=== PATIENT | female | born 1950 | race Caucasian/White ===

== ENCOUNTER 2021-06-03 12:04 | Inpatient (IN) | payer OTHER ==
[~2021-06-03] VITALS: Ht 162.6 cm; Wt 114.0 kg
[~2021-06-03 12:04] MED LIST: BROMFED DM COU473 ML PO; DIFLUCAN200 MG PO
[2021-06-03 13:18] LABS: HEMOGLOBIN 15.4 gm/dl (12.3-15.3); RED BLOOD COUNT 4.93 M/UL (4.00-5.10); WHITE BLOOD COUNT 9.4 K/UL (4.5-11.0)
[2021-06-03 13:52] LABS: BUN/CREATININE RATIO 15 (0-10)
[2021-06-03] MEDS ORDERED: OMNIPOD1 EACH SQ (15:31)
[2021-06-03] MEDS ORDERED: TRESIBA FL100 UNIT/1 SC (15:35)
[2021-06-03] MEDS ORDERED: ALLEGRA ALLERG180 MG PO (15:36)
[2021-06-03] MEDS ORDERED: EFFEXOR XR75 MG PO (15:37)
[2021-06-03] MEDS ORDERED: NOVOLOG 10100 UNITS/ INJ (15:38)
[2021-06-03] MEDS ORDERED: COZAAR50 MG PO (15:39)
[2021-06-03] MEDS ORDERED: FARXIGA10 MG PO (15:39)
[2021-06-03] MEDS ORDERED: OZEMPIC1 MG/0.71 SC (15:39)
[2021-06-03] MEDS ORDERED: VITAMIN D21250 MCG PO (15:40)
[2021-06-03] MEDS ORDERED: LIPITOR TAB 2020 MG PO (15:44)
[2021-06-03] MEDS ORDERED: LEVOTHYROXINE75 MC1 PO (15:45)
[2021-06-03] MEDS ORDERED: PROAIR HFA8.5 GM INH (16:32)
[2021-06-03] MEDS ORDERED: SYMBICORT 160-1 INHA INH (16:32)
[2021-06-04 05:54] LABS: HEMOGLOBIN 14.4 gm/dl (12.3-15.3); RED BLOOD COUNT 4.62 M/UL (4.00-5.10)
[2021-06-04 05:57] LABS: WHITE BLOOD COUNT 6.7 K/UL (4.5-11.0)
--- NOTE | 2021-06-04 07:02 | NUR ---
3146 - [id number]: PATIENT SITTING UP ON SIDE OF BED, SPOE NOTED AT 88 - 84%. INCREASED O2 TO 4 LPM AND THEN ON TO 5 LPM. RN NOTIFIFED RESPIRATORY REQUESTING HIGH-FLOW N/C. ABG OBTAINED PER PREVIOUS ORDER AND PLACED ON 6LPM HIGH-FLOW. SPOE NOW NOTED AT 89%. WILL UPDATE PHYSICIAN MILE ABG RESULTS ARE AVAILABLE.
--- NOTE | 2021-06-04 14:43 | NUR ---
1440: [facility]".
[2021-06-05 05:26] LABS: HEMOGLOBIN 14.2 gm/dl (12.3-15.3); RED BLOOD COUNT 4.54 M/UL (4.00-5.10)
[2021-06-06 03:13] LABS: HEMOGLOBIN 13.5 gm/dl (12.3-15.3); RED BLOOD COUNT 4.58 M/UL (4.00-5.10); WHITE BLOOD COUNT 12.5 K/UL (4.5-11.0)
[2021-06-07 06:13] LABS: HEMOGLOBIN 14.1 gm/dl (12.3-15.3); RED BLOOD COUNT 4.55 M/UL (4.00-5.10); WHITE BLOOD COUNT 15.1 K/UL (4.5-11.0)
[2021-06-08 05:26] LABS: HEMOGLOBIN 13.9 gm/dl (12.3-15.3); RED BLOOD COUNT 4.49 M/UL (4.00-5.10); WHITE BLOOD COUNT 18.2 K/UL (4.5-11.0)
[2021-06-08 05:47] LABS: BUN/CREATININE RATIO 42 (0-10)
[2021-06-09 05:23] LABS: HEMOGLOBIN 14.2 gm/dl (12.3-15.3); RED BLOOD COUNT 4.61 M/UL (4.00-5.10); WHITE BLOOD COUNT 17.7 K/UL (4.5-11.0)
[2021-06-09 07:17] LABS: BUN/CREATININE RATIO 49 (0-10)
[2021-06-10 05:07] LABS: HEMOGLOBIN 14.4 gm/dl (12.3-15.3); RED BLOOD COUNT 4.68 M/UL (4.00-5.10); WHITE BLOOD COUNT 16.3 K/UL (4.5-11.0)
[2021-06-10 05:29] LABS: BUN/CREATININE RATIO 54 (0-10)
[2021-06-11 05:11] LABS: RED BLOOD COUNT 4.8 M/UL (4.00-5.10)
[2021-06-11 05:32] LABS: BUN/CREATININE RATIO 60 (0-10)
[2021-06-12 09:38] LABS: HEMOGLOBIN 15.8 gm/dl (12.3-15.3); RED BLOOD COUNT 5.07 M/UL (4.00-5.10); WHITE BLOOD COUNT 18.8 K/UL (4.5-11.0)
[2021-06-12 09:58] LABS: BUN/CREATININE RATIO 55 (0-10)
[2021-06-13 08:38] LABS: HEMOGLOBIN 17.4 gm/dl (12.3-15.3); RED BLOOD COUNT 5.53 M/UL (4.00-5.10); WHITE BLOOD COUNT 23.2 K/UL (4.5-11.0)
[2021-06-13 09:01] LABS: BUN/CREATININE RATIO 48 (0-10)
[2021-06-14 09:18] LABS: HEMOGLOBIN 17.6 gm/dl (12.3-15.3); RED BLOOD COUNT 5.6 M/UL (4.00-5.10)
[2021-06-14 10:03] LABS: BUN/CREATININE RATIO 51 (0-10)
[2021-06-15 08:15] LABS: HEMOGLOBIN 15.7 gm/dl (12.3-15.3); RED BLOOD COUNT 5.25 M/UL (4.00-5.10)
[2021-06-15 08:40] LABS: WHITE BLOOD COUNT 68.9 K/UL (4.5-11.0)
[2021-06-15 10:11] LABS: HEMOGLOBIN 15.2 gm/dl (12.3-15.3); RED BLOOD COUNT 5.08 M/UL (4.00-5.10)
[2021-06-15 10:12] LABS: WHITE BLOOD COUNT 65.2 K/UL (4.5-11.0)
[2021-06-16 05:36] LABS: HEMOGLOBIN 14.3 gm/dl (12.3-15.3); RED BLOOD COUNT 4.71 M/UL (4.00-5.10)
[2021-06-16 05:42] LABS: WHITE BLOOD COUNT 42.9 K/UL (4.5-11.0)
[2021-06-17 05:26] LABS: RED BLOOD COUNT 4.16 M/UL (4.00-5.10); WHITE BLOOD COUNT 28.6 K/UL (4.5-11.0)
[2021-06-18 16:09] LABS: HEPARIN INDUCED PLATELET AB 0.091 OD (0.000-0.400)
[2021-06-19 05:52] LABS: WHITE BLOOD COUNT 26.7 K/UL (4.5-11.0)
[2021-06-19 05:54] LABS: RED BLOOD COUNT 3.72 M/UL (4.00-5.10)
--- NOTE | 2021-06-19 09:15 | NUR ---
PT CONSISTENTLY BRADYCARDIC AT THIS TIME. TITRATING PROPOFOL PER PROTOCOL. MD NOTIFIED. ORDER OBTAINED FOR ATROPINE AT BEDSIDE. SEE EMAR. WILL CONTINUE TO MONITOR CLOSELY.
--- NOTE | 2021-06-19 11:37 | NUR ---
1000 PT ETCO2 18 ON MONITOR. NOTIFIED. ORDER FOR ABG OBTAINED.
[2021-06-20 05:24] LABS: HEMOGLOBIN 10.1 gm/dl (12.3-15.3); RED BLOOD COUNT 3.47 M/UL (4.00-5.10); WHITE BLOOD COUNT 21.6 K/UL (4.5-11.0)
[2021-06-21 05:25] LABS: RED BLOOD COUNT 3.56 M/UL (4.00-5.10)
[2021-06-21 05:55] LABS: WHITE BLOOD COUNT 28.4 K/UL (4.5-11.0)
[2021-06-22 04:39] LABS: HEMOGLOBIN 9.2 gm/dl (12.3-15.3)
[2021-06-22 04:49] LABS: RED BLOOD COUNT 3.16 M/UL (4.00-5.10); WHITE BLOOD COUNT 17.8 K/UL (4.5-11.0)
[2021-06-23 04:25] LABS: HEMOGLOBIN 10.4 gm/dl (12.3-15.3); RED BLOOD COUNT 3.36 M/UL (4.00-5.10)
[2021-06-23 04:30] LABS: WHITE BLOOD COUNT 23.8 K/UL (4.5-11.0)
[2021-06-25 04:31] LABS: HEMOGLOBIN 9.9 gm/dl (12.3-15.3); RED BLOOD COUNT 3.2 M/UL (4.00-5.10)
[2021-06-25 05:11] LABS: WHITE BLOOD COUNT 17.2 K/UL (4.5-11.0)
[2021-06-26 05:24] LABS: HEMOGLOBIN 9.7 gm/dl (12.3-15.3); RED BLOOD COUNT 3.19 M/UL (4.00-5.10); WHITE BLOOD COUNT 15.1 K/UL (4.5-11.0)
[2021-06-27 06:02] LABS: HEMOGLOBIN 8.8 gm/dl (12.3-15.3); WHITE BLOOD COUNT 13.1 K/UL (4.5-11.0)
[2021-06-27 06:15] LABS: RED BLOOD COUNT 2.86 M/UL (4.00-5.10)
[2021-06-28 04:08] LABS: HEMOGLOBIN 8.8 gm/dl (12.3-15.3); RED BLOOD COUNT 2.9 M/UL (4.00-5.10)
[2021-06-28 04:12] LABS: WHITE BLOOD COUNT 9.7 K/UL (4.5-11.0)
== END 2021-06-29 12:30 | disposition expired | DRG 207 ==
LOC: ER1 12:04 → M/S 15:13 → CCU 15:13 → ER1 16:08 → PROG CARE 06-05 16:13 → CCU 06-06 13:22
PROVIDERS: Internal Medicine; Internal Medicine Pulmonary Disease; ADMIT Internal Medicine
PROC: 5A1955Z Respiratory Ventilation, Greater than 96 Consecutive Hours (ICD-10-PCS; 2021-06-03)
PROC: B24BZZ4 Ultrasonography of Heart with Aorta, Transesophageal (ICD-10-PCS; 2021-06-03)
PROC: 0BH17EZ Insertion of Endotracheal Airway into Trachea, Via Natural or Artificial Opening (ICD-10-PCS; 2021-06-03)
PROC: XW033E5 Introduction of Remdesivir Anti-infective into Peripheral Vein, Percutaneous Approach, New Technology Group 5 (ICD-10-PCS; 2021-06-03)
PROC: 3E0333Z Introduction of Anti-inflammatory into Peripheral Vein, Percutaneous Approach (ICD-10-PCS; 2021-06-03)
PROC: XW033H5 Introduction of Tocilizumab into Peripheral Vein, Percutaneous Approach, New Technology Group 5 (ICD-10-PCS; 2021-06-03)
PROC: 8E0ZXY6 Isolation (ICD-10-PCS; 2021-06-03)
PROC: XW13325 Transfusion of Convalescent Plasma (Nonautologous) into Peripheral Vein, Percutaneous Approach, New Technology Group 5 (ICD-10-PCS; principal; 2021-06-04)
PROC: 5A0945A Assistance with Respiratory Ventilation, 24-96 Consecutive Hours, High Flow/Velocity Cannula (ICD-10-PCS; 2021-06-05)
PROC: 5A09357 Assistance with Respiratory Ventilation, Less than 24 Consecutive Hours, Continuous Positive Airway Pressure (ICD-10-PCS; 2021-06-06)
PROC: 02HV33Z Insertion of Infusion Device into Superior Vena Cava, Percutaneous Approach (ICD-10-PCS; 2021-06-14)
PROC: B548ZZA Ultrasonography of Superior Vena Cava, Guidance (ICD-10-PCS; 2021-06-14)
PROC: 0W9B30Z Drainage of Left Pleural Cavity with Drainage Device, Percutaneous Approach (ICD-10-PCS; 2021-06-16)
DX: U07.1 COVID-19 (principal); J12.82 Pneumonia due to coronavirus disease 2019; J80 Acute respiratory distress syndrome; G93.41 Metabolic encephalopathy; Z51.5 Encounter for palliative care; J15.1 Pneumonia due to Pseudomonas; A41.89 Other specified sepsis; R65.21 Severe sepsis with septic shock; Z68.41 Body mass index [BMI] 40.0-44.9, adult; N17.9 Acute kidney failure, unspecified; E87.0 Hyperosmolality and hypernatremia; J98.11 Atelectasis; E87.4 Mixed disorder of acid-base balance; I95.9 Hypotension, unspecified; D69.6 Thrombocytopenia, unspecified; I08.2 Rheumatic disorders of both aortic and tricuspid valves; I27.20 Pulmonary hypertension, unspecified; Z96.41 Presence of insulin pump (external) (internal); E11.649 Type 2 diabetes mellitus with hypoglycemia without coma; E78.00 Pure hypercholesterolemia, unspecified; E87.8 Other disorders of electrolyte and fluid balance, not elsewhere classified; E66.01 Morbid (severe) obesity due to excess calories; I10 Essential (primary) hypertension; D72.829 Elevated white blood cell count, unspecified; T38.0X5A Adverse effect of glucocorticoids and synthetic analogues, initial encounter; E03.9 Hypothyroidism, unspecified; E78.5 Hyperlipidemia, unspecified; J45.909 Unspecified asthma, uncomplicated; K59.00 Constipation, unspecified; E87.6 Hypokalemia; E55.9 Vitamin D deficiency, unspecified; Z98.42 Cataract extraction status, left eye; Z98.41 Cataract extraction status, right eye; Z82.49 Family history of ischemic heart disease and other diseases of the circulatory system; Z83.3 Family history of diabetes mellitus; Z88.6 Allergy status to analgesic agent; Z79.4 Long term (current) use of insulin; Z90.49 Acquired absence of other specified parts of digestive tract
CPT/HCPCS: ECHO; 31500; 36415; 36600; 71045; 80048; 80053; 80202; 82009; 82550; 82553; 82728; 82803; 82962; 83605; 83615; 83735; 83874; 83880; 84100; 84484; 85007; 85025; 85027; 85379; 85384; 86140; 86900; 86901; 86927; 87040; 87070; 87077; 87081; 87186; 87205; 93005; 93306; 94002; 94003; 94640; 94660; 94664; 94760; 99285; A6212; C9113; J0360; J0461; J0696; J1100; J1120; J1205; J1650; J1940; J2060; J2185; J2250; J2270; J2405; J2543; J2704; J3010; J3370; J7030; J7040; J7050; J7070; U0002